=== PATIENT | male | born 1975 ===

== ENCOUNTER 2016-11-11 09:11 | Emergency (ER) | payer MEDICARE, MEDICAID ==
[2016-11-11 10:59] VITALS: BP 141/82
--- NOTE | 2016-11-11 11:23 | UC ---
Respiratory Complaint HPI - HPI Summary HPI Summary: 41 yo male with a 2 week hx of cough He has cerebral palsy Hx asthma Hx bronchitis Hx of pneumonia has had chills states he has not been wheezy just finished z rory and prednisone - History of Current Complaint Chief Complaint: UCRespiratory Stated Complaint: COUGH,CONGESTION Time Seen by Provider: 11/11/16 11:11 Hx Obtained From: Patient Onset/Duration: Gradual Onset, Lasting Weeks Timing: Constant Severity Initially: Mild Severity Currently: Moderate Pain Intensity: 2 Pain Scale Used: 0-10 Numeric Character: Cough: Nonproductive Aggravating Factors: Nothing Alleviating Factors: Nothing Associated Signs And Symptoms: Positive: Chills - Allergies/Home Medications Allergies/Adverse Reactions: Allergies Allergy/AdvReac Type Severity Reaction Status Date / Time Prochlorperazine Allergy Severe Anaphylatic Verified 11/11/16 10:59 [From Compazine] Shock Morphine and Related Allergy Mild Hives Verified 11/11/16 10:59 Coconut Oil Allergy Swelling Verified 11/11/16 10:59 Of Face,Lips,& Throat peanut Allergy Swelling Uncoded 11/11/16 11:00 Of Face,Lips,& Throat PMH/Surg Hx/FS Hx/Imm Hx Previously Healthy: Yes Endocrine History Of: Denies: Diabetes Cardiovascular History Of: Reports: Hypertension Denies: Pacemaker/ICD Respiratory History Of: Reports: Asthma, Bronchitis, Pneumonia GI/ History Of: Denies: Renal Disease - Surgical History Surgical History: Yes Surgery Procedure, Year, and Place: related to CP- legs and hips. UMBILICAL HERNIA REPAIR. - Family History Known Family History: Positive: Hypertension - Social History Alcohol Use: Daily Alcohol Amount: 3 beers Substance Use Type: None, Prescribed Smoking Status (MU): Never Smoked Tobacco Amount Used/How Often: 1 can/ week Review of Systems Constitutional: Chills Skin: Negative Eyes: Negative ENT: Negative Respiratory: Cough Cardiovascular: Negative Gastrointestinal: Negative Genitourinary: Negative Motor: Negative Neurovascular: Negative Musculoskeletal: Negative Neurological: Negative Psychological: Negative All Other Systems Reviewed And Are Negative: Yes Physical Exam Triage Information Reviewed: Yes Appearance: Well-Appearing, No Pain Distress, Well-Nourished Vital Signs: Initial Vital Signs Temp 99.2 F 11/11/16 10:49 Pulse 81 11/11/16 10:49 Resp 28 11/11/16 10:49 BP 141/82 11/11/16 10:49 Pulse Ox 98 11/11/16 10:49 Vital Signs Reviewed: Yes Eyes: Positive: Conjunctiva Clear ENT: Positive: Hearing grossly normal. Negative: Nasal congestion, Nasal drainage, Tonsillar exudate, Trismus, Muffled/hoarse voice Neck: Positive: Supple, Nontender, No Lymphadenopathy Respiratory: Positive: Lungs clear, Normal breath sounds, No respiratory distress, No accessory muscle use. Negative: Respiratory distress, Decreased breath sounds, Accessory muscle use Cardiovascular: Positive: RRR, No Murmur. Negative: Tachycardia, Bradycardia Musculoskeletal: Positive: Other: - contractures Neurological Exam: Other - contractures/hyperflexia Neurological: Negative: Other: Psychological Exam: Normal Skin Exam: Normal UC Diagnostic Evaluation - Laboratory O2 Sat by Pulse Oximetry: 98 - normal/not hypoxic - Radiology Xray Interpretation: No Acute Changes Radiology Interpretation Completed By: Radiologist Respiratory Course/Dx - Differential Dx/Diagnosis Provider Diagnoses: acute bronchitis Discharge - Discharge Plan Condition: Stable Disposition: HOME Prescriptions: Amoxicillin (*) [Amoxicillin 875 MG (*)] 875 mg PO BID #20 tab Benzonatate CAP* [Tessalon CAP*] 100 - 200 mg PO TID PRN #28 cap PRN Reason: Cough Patient Education Materials: Acute Bronchitis (ED) Referrals: Pietro Villela MD [Primary Care Provider] - 4 Days (if not better)
--- NOTE | 2016-11-11 11:40 | RAD ---
INDICATION: Cough COMPARISON: May 18, 2015 TECHNIQUE: AP seated and lateral views were obtained. FINDINGS: Bones/Soft Tissues: There are no acute bony findings. Cardiomediastinal: The cardiomediastinal silhouette is normal. Lungs: There are no infiltrates. Pleura: There are no pleural effusions. Other: None IMPRESSION: NO ACTIVE DISEASE.
== END 2016-11-11 12:05 | disposition home or self-care (01) ==
LOC: UCCORT 09:11
DX: J20.9 Acute bronchitis, unspecified (principal); I10 Essential (primary) hypertension; G80.9 Cerebral palsy, unspecified; F17.220 Nicotine dependence, chewing tobacco, uncomplicated
CPT/HCPCS: 71020; 99212; G0463

== ENCOUNTER 2017-09-18 09:24 | Emergency (ER) | payer MEDICARE, MEDICAID ==
[2017-09-18 11:19] VITALS: BP 132/76
--- NOTE | 2017-09-18 12:03 | UC ---
Shoulder Pain HPI - HPI Summary HPI Summary: 42 yo male was working under a trailer 4 days ago since then has had left trapezius and rhomboid pain as well as intermittent left index and little finger numbness He has CP - History of Current Complaint Chief Complaint: UCUpperExtremity Stated Complaint: LEFT SHOULDER PAIN 2 WEEKS Time Seen by Provider: 09/18/17 11:44 Hx Obtained From: Patient Onset/Duration: Gradual Onset, Lasting Days Timing: Constant Severity Initially: Moderate Severity Currently: Moderate Pain Intensity: 7 Pain Scale Used: 0-10 Numeric Character: Aching, Throbbing, Spasmodic Aggravating Factor(s): Movement Alleviating Factor(s): Rest Associated Signs And Symptoms: Positive: Numbness/Tingling - left index and little finger Related History: Dominant Hand Right - Allergies/Home Medications Allergies/Adverse Reactions: Allergies Allergy/AdvReac Type Severity Reaction Status Date / Time MS Prochlorperazine Allergy Severe Anaphylatic Verified 09/18/17 11:20 [From Compazine] Shock MS Morphine and Related Allergy Mild Hives Verified 09/18/17 11:20 [Morphine and Related] MS Coconut Oil [Coconut Oil] Allergy Swelling Verified 09/18/17 11:20 Of Face,Lips,& Throat peanut Allergy Swelling Uncoded 09/18/17 11:20 Of Face,Lips,& Throat Home Medications: Home Medications Montelukast Sodium TAB* [Singulair TAB*] 10 mg PO DAILY 09/18/17 [History Confirmed 09/18/17] Omeprazole CAP* [Prilosec CAP* 20 MG] 20 mg PO DAILY 09/18/17 [History Confirmed 09/18/17] PMH/Surg Hx/FS Hx/Imm Hx Previously Healthy: Yes - CP Respiratory History: Asthma - Surgical History Surgical History: Yes Surgery Procedure, Year, and Place: related to CP- legs and hips. UMBILICAL HERNIA REPAIR. - Family History Known Family History: Positive: Hypertension - Social History Alcohol Use: Daily Alcohol Amount: 3 beers Substance Use Type: None, Prescribed Smoking Status (MU): Never Smoked Tobacco Amount Used/How Often: 1 can/ week Review of Systems Constitutional: Negative Skin: Negative Eyes: Negative ENT: Negative Respiratory: Negative Cardiovascular: Negative Gastrointestinal: Negative Genitourinary: Negative Motor: Negative Neurovascular: Negative Musculoskeletal: Myalgia Neurological: Negative Psychological: Negative Is Patient Immunocompromised?: No All Other Systems Reviewed And Are Negative: Yes Physical Exam Triage Information Reviewed: Yes Appearance: Well-Appearing, No Pain Distress, Well-Nourished, Other: - in wheel chair Vital Signs: Initial Vital Signs Temp 98.9 F 09/18/17 11:14 Pulse 79 09/18/17 11:14 Resp 14 09/18/17 11:14 BP 132/76 09/18/17 11:14 Pulse Ox 97 09/18/17 11:14 Vital Signs Reviewed: Yes Eyes: Positive: Conjunctiva Clear ENT: Positive: Hearing grossly normal. Negative: Nasal congestion, Nasal drainage, Trismus, Muffled voice, Hoarse voice Neck: Positive: Supple Respiratory: Positive: Lungs clear, Normal breath sounds, No respiratory distress Cardiovascular: Positive: RRR, No Murmur Musculoskeletal: Positive: Other: - contractures and atrophy Psychological Exam: Normal Skin Exam: Normal Shoulder Course/Dx - Differential Dx/Diagnosis Provider Diagnoses: left trapezius myofascial strain. left rhomboid myofascial strain Discharge - Discharge Plan Condition: Stable Disposition: HOME Prescriptions: Naproxen Sodium [Naproxen Sodium 500 MG TAB] 500 mg PO BID PRN #30 tab PRN Reason: Pain Patient Education Materials: Muscle Spasm (ED) Referrals: Brandyn Tamez MD [Primary Care Provider] - 5 Days Additional Instructions: heat recheck for new or worsening symptoms recheck with your provider next week I suspect the numbness is due to muscle spasm ....but if not improving you may need special tests Images Head: 1 - tender/spasm Front/Back of Body, Lg ([place]): 1 - tender/spasm
== END 2017-09-18 12:07 | disposition home or self-care (01) ==
LOC: UCCORT 09:24
DX: S46.812A Strain of other muscles, fascia and tendons at shoulder and upper arm level, left arm, initial encounter (principal); X58.XXXA Exposure to other specified factors, initial encounter; Y92.9 Unspecified place or not applicable; J45.909 Unspecified asthma, uncomplicated
CPT/HCPCS: 99212; G0463